=== PATIENT | female | born 1945 | race Caucasian/White ===

== ENCOUNTER 2017-11-17 06:38 | Emergency (ER) | payer MEDICARE, MEDICAID ==
[2017-11-17] MEDS ORDERED: Thiamine IV* 100 MG, Folic Acid IV* 1 MG, Multiple Vitamin IV ADULT* 10 ML in NS 0.9% 1... IV ONE (07:37)
--- NOTE | 2017-11-17 07:38 | ED ---
Upper Extremity Pain - HPI Summary HPI Summary: This patient is a 72 year old F presenting to [facility] with a chief complaint of right elbow pain secondary to mechanical fall since 0100. Pt is unaware of why she fell, but states she knows that she did not trip. Pt notes using walker to ambulate. She endorses right elbow pain, abrasion. Pt endorses having used the walker last night when she fell. She notes her legs werent functioning properly , they wouldnt go. Denies the fault is weakness so much as dysfunction. Pt denies CUEVAS. PMHx prosthetic eye, PMHx CVA. Pt endorses mild pain from leg movement, and more than baseline decreased range of motion in all extremities. Pts recent CT scan revealed edema in the left lateral horn and ventricle cavity. - History of Current Complaint Chief Complaint: EDExtremityUpper Stated Complaint: FALL Time Seen by Provider: 11/17/17 07:17 Hx Obtained From: Patient Mechanism Of Injury: Fall From A Standing Position Onset/Duration: Started Hours Ago, Traumatic Severity Initially: Mild Severity Currently: Mild Pain Location: Elbow Aggravating Factor(s): Nothing Alleviating Factor(s): Nothing Associated Signs & Symptoms: Positive: Other - right elbow abrasion, worse than baseline decreased ROM in all extremities. Negative: Fever, Weakness - Allergies/Home Medications Allergies/Adverse Reactions: Allergies Allergy/AdvReac Type Severity Reaction Status Date / Time aspirin Allergy Unknown Verified 11/17/17 06:43 Reaction Details Home Medications: Home Medications Ropinirole HCl [Requip] 0.25 mg PO BEDTIME 11/17/17 [History Confirmed 11/17/17] PMH/Surg Hx/FS Hx/Imm Hx Endocrine/Hematology History: Reports: Hx Thyroid Disease Denies: Hx Diabetes, Hx Systemic Lupus Erythematosus Cardiovascular History: Reports: Hx Hypertension, Other Cardiovascular Problems/ Disorders - HIGH BLOOD PRESSURE Denies: Hx Congestive Heart Failure, Hx Pacemaker/ICD Respiratory History: Reports: Hx Chronic Obstructive Pulmonary Disease (COPD) Comment Only: Other Respiratory Problems/Disorders - COPD GI History: Denies: Other GI Disorders History: Denies: Hx Renal Disease Sensory History: Reports: Hx Contacts or Glasses, Hx Eye Prosthesis - left Opthamlomology History: Reports: Hx Contacts or Glasses, Hx Eye Prosthesis - left Neurological History: Reports: Other Neuro Impairments/Disorders - 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 Denies: Hx Seizures Psychiatric History: Denies: Hx Autism, Hx Schizophrenia - Surgical History Surgery Procedure, Year, and Place: FX'ED MANDIBLE REPAIR/LT EYE REMOVAL RUPTURED ARTERY Infectious Disease History: No Infectious Disease History: Denies: Traveled Outside the [place] in Last 30 Days - Family History Known Family History: Negative: Blood Disorder - Social History Occupation: Retired Lives: Alone Alcohol Use: None Alcohol Amount: a beer/daily Substance Use Type: Reports: None Smoking Status (MU): Light Every Day Tobacco Smoker Type: Cigarettes Have You Smoked in the Last Year: Yes Review of Systems Negative: Fever Positive: no symptoms reported Positive: Arthralgia - right elbow, Decreased ROM - all limbs, especially legs, especially right Positive: Other - right elbow abrasion Negative: Headache All Other Systems Reviewed And Are Negative: Yes Physical Exam - Summary Physical Exam Summary: Appearance: The patient is well-nourished in no acute distress and in no acute pain. Patient slurs speech and is difficult to understand. Skin: The skin is warm and dry and skin color reflects adequate perfusion. Abrasion to right elbow. HEENT: The head is normocephalic and atraumatic. Left ocular prosthesis. Her right pupil is equal and reactive. The conjunctivae are clear and without drainage. Nares are patent and without drainage. Mouth reveals moist mucous membranes and the throat is without erythema and exudate. The external ears are intact. The ear canals are patent and without drainage. The tympanic membranes are intact. Neck: The neck is supple with full range of motion and non-tender. There are no carotid bruits. There is no neck vein distension. Respiratory: Chest is non-tender. Lungs are clear to auscultation and breath sounds are symmetrical and equal. Cardiovascular: Heart is regular rate and rhythm. There is no murmur or rub auscultated. There is no peripheral edema and pulses are symmetrical and equal. Abdomen: The abdomen is soft and non-tender. There are normal bowel sounds heard in all four quadrants and there is no organomegaly palpated. Musculoskeletal: There is no back tenderness noted. There is good capillary refill. There is no peripheral edema or calf tenderness elicited. Significant dysmetria in both upper and lower extremities, right much worse than left. Neurological: Patient is alert and oriented to person, place and time. The patient has significant dysmetria in both upper and lower extremities, right much worse than left. Cranial nerves are grossly intact. Deep tendon reflexes are symmetrical and equal in all four extremities. Pt slurs speech and is difficult to understand. Psychiatric: The patient has an appropriate affect and does not exhibit any anxiety or depression. Significant dysmetria in both upper and lower extremities, right much worse than left. Slurs speech difficult to understand, left ocular prosthesis, abrasion on right elbow. Triage Information Reviewed: Yes Vital Signs On Initial Exam: Initial Vitals Temp Pulse Resp BP Pulse Ox 99.2 F 84 16 171/100 96 11/17/17 06:40 11/17/17 06:40 11/17/17 06:40 11/17/17 06:40 11/17/17 06:40 Vital Signs Reviewed: Yes Diagnostics - Vital Signs Vital Signs Temp Pulse Resp BP Pulse Ox 11/17/17 06:45 84 93 11/17/17 06:43 85 171/100 93 11/17/17 06:42 82 184/105 92 11/17/17 06:40 99.2 F 84 16 171/100 96 - Laboratory Result Diagrams: 11/17/17 08:34 11/17/17 08:34 Lab Statement: Any lab studies that have been ordered have been reviewed, and results considered in the medical decision making process. - CT Brain CT Interpretation: Positive (See Comments) CT Interpretation Completed By: Radiologist - 1. CHRONIC SMALL VESSEL ISCHEMIC CHANGE WITH MULTIPLE CHRONIC INFARCTS, WITH PROGRESSION COMPARED TO AUGUST 05, 2012. 2. NO ACUTE INTRACRANIAL PATHOLOGY. Dr. Sanon has reviewed this report. - EKG 0743 Cardiac Rate: NL - 81 EKG Rhythm: Sinus Rhythm ST Segment: Normal Ectopy: None Re-Evaluation - Re-Evaluation First Eval Re-Evaluation Time: 12:33 Change: Improved Comment: Pt better after fluids. Course/Dx - Course Course Of Treatment: Ms. Larson presented to the emergency department after having fallen when getting out of bed to go to the bathroom. She normally walks with a walker and she was walking with her walker when she fell. She thinks she felt as her legs weren't working right. She went back to bed and when she got out of bed this morning she still felt that her legs were working right and she came into the ED. She got a workup here including CT scan and labs as well as a banana bag of fluid. She has a history of chronic alcohol use. On initial exam she is quite dysmetric. After her evaluation she felt much improved. She walked normally with her walker as attested to by 2 friends here with her. I'm not sure of the etiology but this seems unlikely that this is a posterior stroke that has resolved with fluids. I recommended close follow -up and discharge. - Diagnoses Provider Diagnoses: Dehydration Discharge - Sign-Out/Discharge Documenting (check all that apply): Patient Departure - discharge - Discharge Plan Condition: Stable Disposition: HOME Patient Education Materials: Dehydration (ED) Referrals: Cuca Rosas MD [Primary Care Provider] - 3 Days Additional Instructions: Return to the emergency department for any new or worsening symptoms. - Billing Disposition and Condition Condition: STABLE Disposition: Home - Attestation Statements Document Initiated by Lona: Yes Documenting Scribe: Oneil Tatum Provider For Whom Lona is Documenting (Include Credential): Dr. Sravan Sanon MD Scribe Attestation: I, Oneil Tatum scribed for Dr. Sravan Sanon MD on 11/17/17 at 1810. Scribe Documentation Reviewed: Yes Provider Attestation: The documentation as recorded by the Oneil segovia accurately reflects the service I personally performed and the decisions made by me, Dr. Sravan Saonn MD
[2017-11-17 08:40] LABS: ABS Basophils 0.1 10^3/ul (0-0.2); ABS Eosinophils 0 10^3/ul (0-0.6); ABS Lymphocytes 1.5 10^3/ul (1.0-4.8); ABS Monocytes 0.3 10^3/ul (0-0.8); ABS Neutrophils 4.7 10^3/ul (1.5-7.7); ABS Nucleated RBC 0 10^3/ul; Eosinophil % 0.7 % (0-6); Hematocrit 38 % (35-47); Hemoglobin 13.1 g/dl (12.0-16.0); Lymphocyte % 23.1 % (25-47); Mean Corpuscular HGB Conc 35 g/dl (31-36); Mean Corpuscular Hemoglobin 33 pg (27-31); Mean Corpuscular Volume 94 fL (80-97); Nucleated Red Blood Cells % 0; Platelet Count 241 10^3/ul (150-450); Red Blood Count 4.04 10^6/ul (4.00-5.40); Red Cell Distribution Width 13 % (10.5-15); White Blood Count 6.6 10^3/ul (3.5-10.8)
[2017-11-17 08:45] LABS: INR 0.98 (0.77-1.02)
--- NOTE | 2017-11-17 09:02 | RAD ---
HISTORY: ataxia COMPARISONS: August 05, 2012 TECHNIQUE: Multiple contiguous axial CT scans were obtained of the head without intravenous contrast. FINDINGS: HEMORRHAGE/INFARCT: There is no hemorrhage or acute infarct. MASSES/SHIFT: There is no mass or shift. EXTRA-AXIAL SPACES: There are no extra-axial fluid collections. SULCI AND VENTRICLES: There is diffuse and proportional enlargement of the sulci and ventricles. There is ex vacuo dilatation of the frontal horn of left lateral ventricle. This is stable. CEREBRUM: There is hypoattenuation of the periventricular and subcortical white matter. There is left frontal encephalomalacia. BRAINSTEM: There are no focal parenchymal abnormalities. CEREBELLUM: There is right cerebellar encephalomalacia that has developed from the 2013 examination. VESSELS: The vessels are grossly normal. PARANASAL SINUSES: The paranasal sinuses are clear. ORBITS: The nodular prosthesis is noted on the left. BONES AND SOFT TISSUE: No bone or soft tissue abnormalities are noted. OTHER: None IMPRESSION: 1. CHRONIC SMALL VESSEL ISCHEMIC CHANGE WITH MULTIPLE CHRONIC INFARCTS, WITH PROGRESSION COMPARED TO AUGUST 05, 2012. 2. NO ACUTE INTRACRANIAL PATHOLOGY.
[2017-11-17 09:05] LABS: EGFR Non-African American 111.3 (>60)
[2017-11-17 11:10] LABS: Urine Appearance Clear; Urine Blood 1+ (Negative); Urine Color Straw; Urine Ketones Negative (Negative); Urine Protein Negative (Negative); Urine Red Blood Cell Trace(0-2/hpf) (Absent); Urine Specific Gravity 1.003 (1.010-1.030); Urine Urobilinogen Negative (Negative); Urine White Blood Cell Trace(0-5/hpf) (Absent)
[2017-11-17 12:32] VITALS: BP 121/65
== END 2017-11-17 12:41 | disposition home or self-care (01) ==
LOC: ED 06:38
DX: E86.0 Dehydration (principal); M25.521 Pain in right elbow; F17.210 Nicotine dependence, cigarettes, uncomplicated; Z91.81 History of falling; Z86.73 Personal history of transient ischemic attack (TIA), and cerebral infarction without residual deficits; Z97.0 Presence of artificial eye; Z88.6 Allergy status to analgesic agent
CPT/HCPCS: 36415; 70450; 80053; 80307; 81003; 81015; 83605; 83735; 84443; 84484; 85025; 85610; 87086; 96360; 96361; 96365; 96366; 99284; J3411

== ENCOUNTER 2017-12-23 17:26 | Emergency (ER) | payer MEDICARE, MEDICAID ==
--- OUTSIDE RECORDS SUMMARY | 2017-12-23 18:38 | XMS REPORT ---
:1945 External Reference #:[id number] Author Organization [employer] Address [address] [place] [address] [place] [address] Phone [phone] Care Team Providers Name Role Phone Cuca Rosas MD Primary Care Physician Unavailable Payers Type Date Identification Numbers Payment Provider Subscriber Health Maintenance Policy Number: Medicare Blue Ppo Rere Dias [facility] (O) [id number] PayID: [id number] [address] [address] [place] [address] Medigap Part B Policy Number: [id number] Medicare Rere [place] PayID: [id number] [address] [place] [address] Medigap Part B Expires: 12/20/2017 Policy Number: [facility] Rere Dias [id number] Care (Oon) PayID: [id number] [address] [place] [address] Commercial Policy Number: [id number] [place] Rere [place] PayID: [id number] [address] [place] [address] Problems Date Description Provider Status Onset: 12/20/2014 Alcoholic polyneuropathy Nadira Bowres MD Active Onset: 12/20/2014 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 Nadira Bowers MD Active of cerebrovascular disease Social History Type Date Description Comments ETOH Use Drinks 6 Alcoholic Beverages Per Day Smoking Patient is a current smoker, smokes every day 1/2 pack per day Allergies, Adverse Reactions, Alerts Date Description Reaction Status Severity Comments 12/20/2014 Aspirin active Medications Medication Date Status Form Strength Qnty SIG Indications Ordering Provider Ventolin HFA 00/00/ Active Aerosol 108(90Bas 2 puffs by Unknown 0000 e) mouth four mcg/Act times a day as needed Proair HFA 00/00/ Active Aerosol 108(90Bas 2 puffs by Unknown 0000 e) mouth every mcg/Act 4 hours as needed Diltiazem CD 00/ Active Caps ER 120mg 1 by mouth Unknown 0000 24HR every day Flovent HFA 00/ Active Aerosol 110mcg/Ac 2 puffs Unknown 0000 t twice daily Levothyroxine 0000/ Active Tablets 50mcg 1 by mouth Unknown Sodium 0000 every day Lisinopril 0000/ Active Tablets 5mg 1 by mouth Unknown 0000 every day Nicotine 00/00/ Active Patches 14mg/24HR 1 apply Unknown 0000 24HR patch topically every 24 hours. Omeprazole // Active Capsules 20mg 1 by mouth Unknown 0000 DR every day Ropinirole HCL 00/ Active Tablets 0.25mg 1 tablets Unknown 0000 by mouth every night at bed Spiriva / Active Capsules 18mcg 1 Unknown Handihaler 0000 inhalation by mouth every morning Aspirin 00/ Hx Tablets 81mg 1 by mouth Unknown 0000 - every day 2014 Ergocalciferol 00/ Hx Capsules [id number] 1 cap by Unknown 0000 - mouth every 2018 Vital Signs Date Vital Result Comment 12/21/2017 Height 64 inches 5'4" Weight 130.75 lb Heart Rate 76 /min BP Systolic Sitting 100 mmHg BP Diastolic Sitting 70 mmHg Respiratory Rate 20 /min Body Temperature 97.1 F BMI (Body Mass Index) 22.4 kg/m2 12/20/2014 Height 64 inches 5'4" Weight 127.00 lb Heart Rate 76 /min BP Systolic Sitting 118 mmHg BP Diastolic Sitting 74 mmHg Respiratory Rate 16 /min BMI (Body Mass Index) 21.8 kg/m2 Results Description No Information Procedures Description No Information Encounters Type Date Location Provider CPT E/M Dx Office Visit 12/20/2014 11:00a [place] [address] I69.351 [facility] G62.1 I10 Plan of Care 12/21/2017 - Howard Lubin M.D.G93.89 Other specified disorders of brainFollow up:With PCP
[2017-12-23 18:53] LABS: ABS Basophils 0.1 10^3/ul (0-0.2); ABS Eosinophils 0.1 10^3/ul (0-0.6); ABS Lymphocytes 1.9 10^3/ul (1.0-4.8); ABS Monocytes 0.4 10^3/ul (0-0.8); ABS Neutrophils 4.8 10^3/ul (1.5-7.7); ABS Nucleated RBC 0 10^3/ul; Eosinophil % 1.1 % (0-6); Hematocrit 35 % (35-47); Lymphocyte % 26.4 % (25-47); Mean Corpuscular HGB Conc 35 g/dl (31-36); Mean Corpuscular Hemoglobin 32 pg (27-31); Mean Corpuscular Volume 92 fL (80-97); Mean Platelet Volume 7.5 um3 (7.4-10.4); Nucleated Red Blood Cells % 0; Platelet Count 202 10^3/ul (150-450); Red Blood Count 3.74 10^6/ul (4.00-5.40); Red Cell Distribution Width 13 % (10.5-15); White Blood Count 7.2 10^3/ul (3.5-10.8)
--- NOTE | 2017-12-23 19:10 | RAD ---
EXAM: US Duplex Bilateral Lower Extremity Veins CLINICAL HISTORY: 72 years old, female; Signs and symptoms; Swelling of limb; Lower extremity, right; Additional info: Pedal edema TECHNIQUE: Real-time duplex ultrasound scan of the bilateral lower extremity veins integrating B-mode two-dimensional vascular structure, Doppler spectral analysis, color flow Doppler imaging and compression. COMPARISON: No relevant prior studies available. FINDINGS: Right deep veins: Possible occlusion of the right femoral artery involving its proximal and mid portions with reconstitution of flow distally. No DVT in the right common femoral, femoral, proximal deep femoral or popliteal veins. The veins demonstrate normal color flow, are normally compressible, with normal phasic flow and/or augmentation response. Right superficial veins: Unremarkable. No thrombus in the visualized right great saphenous vein. Left deep veins: Unremarkable. No DVT in the left common femoral, femoral, proximal deep femoral or popliteal veins. The veins demonstrate normal color flow, are normally compressible, with normal phasic flow and/or augmentation response. Left superficial veins: Unremarkable. No thrombus in the visualized left great saphenous vein. Soft tissues: No acute findings. No popliteal cyst. Other: Possible occlusion of the right femoral artery involving its proximal and mid portions with reconstitution of flow distally. IMPRESSION: 1. No deep venous thrombosis. 2. Possible occlusion of the right femoral artery.
[2017-12-23 19:21] LABS: EGFR Non-African American 106.7 (>60)
--- NOTE | 2017-12-23 20:34 | ED ---
Lower Extremity - HPI Summary HPI Summary: Patient sent by PCP to the ED for DVT rule out. Patient complains of bilateral lower extremity swelling 3 weeks. Swelling is worse at night, improved by morning. Denies trauma, fever, cough, sore throat, CP, SOB, N/V/D, abdominal pain, change in urine, change in BM. Denies history of CHF. Denies history of swelling prior to past 3 weeks. Medical condition is hypothyroid, HTN, GERD, COPD. Positive smoker. Denies history of blood clots. No anti-coag. - History of Current Complaint Chief Complaint: EDExtremityLower Stated Complaint: SWELLING/SORENESS IN LEGS Time Seen by Provider: 12/23/17 17:47 Hx Obtained From: Patient Mechanism Of Injury: Unknown Onset of Pain: Days Onset/Duration: Weeks Severity Initially: Mild Severity Currently: Mild Pain Intensity: 0 Pain Scale Used: 0-10 Numeric Timing: Intermittent Location: Is Discrete @ Character Of Pain: Throbbing Associated Signs And Symptoms: Positive: Swelling Aggravating Factor(s): Ambulation, Weight Bearing Alleviating Factor(s): Rest Able to Bear Weight: Yes - Allergies/Home Medications Allergies/Adverse Reactions: Allergies Allergy/AdvReac Type Severity Reaction Status Date / Time aspirin Allergy Unknown Verified 12/23/17 17:59 Reaction Details PMH/Surg Hx/FS Hx/Imm Hx Endocrine/Hematology History: Reports: Hx Thyroid Disease Denies: Hx Diabetes, Hx Systemic Lupus Erythematosus Cardiovascular History: Reports: Hx Hypertension, Other Cardiovascular Problems/ Disorders - HIGH BLOOD PRESSURE Denies: Hx Congestive Heart Failure, Hx Pacemaker/ICD Respiratory History: Reports: Hx Chronic Obstructive Pulmonary Disease (COPD) Comment Only: Other Respiratory Problems/Disorders - COPD GI History: Denies: Other GI Disorders History: Denies: Hx Renal Disease Sensory History: Reports: Hx Contacts or Glasses, Hx Eye Prosthesis - left Opthamlomology History: Reports: Hx Contacts or Glasses, Hx Eye Prosthesis - left Neurological History: Reports: Other Neuro Impairments/Disorders - 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 Denies: Hx Seizures Psychiatric History: Denies: Hx Autism, Hx Schizophrenia - Surgical History Surgery Procedure, Year, and Place: FX'ED MANDIBLE REPAIR/LT EYE REMOVAL RUPTURED ARTERY - Immunization History Immunizations Up to Date: Yes Infectious Disease History: No Infectious Disease History: Denies: Traveled Outside the [place] in Last 30 Days - Family History Known Family History: Negative: Blood Disorder - Social History Alcohol Use: None Alcohol Amount: a beer/daily Substance Use Type: Reports: None Smoking Status (MU): Light Every Day Tobacco Smoker Type: Cigarettes Have You Smoked in the Last Year: Yes Review of Systems Constitutional: Negative Eyes: Negative ENT: Negative Cardiovascular: Negative Respiratory: Negative Gastrointestinal: Negative Genitourinary: Negative Musculoskeletal: Negative Skin: Other Neurological: Negative Psychological: Normal All Other Systems Reviewed And Are Negative: Yes Physical Exam - Summary Physical Exam Summary: Very mild edema in left lower extremity. 1+ pitting edema right lower extremity. No erythema, ecchymosis, deformity, swelling, extra warmth, wound noted to bilateral lower extremities. Full range of motion at ankle and knee bilaterally. Calves soft nontender bilaterally. Vital Signs On Initial Exam: Initial Vitals Temp Pulse Resp BP Pulse Ox 97.6 F 67 16 122/58 100 12/23/17 17:35 12/23/17 17:35 12/23/17 17:35 12/23/17 17:35 12/23/17 17:35 Diagnostics - Vital Signs Vital Signs Temp Pulse Resp BP Pulse Ox 12/23/17 18:21 72 17 113/65 99 12/23/17 18:00 72 24 100 12/23/17 17:51 72 119/67 100 12/23/17 17:50 71 99 12/23/17 17:35 97.6 F 67 16 122/58 100 - Laboratory Lab Results: Lab Results 12/23/17 12/23/17 Range/Units 18:40 18:40 WBC 7.2 (3.5-10.8) 10^3/ul RBC 3.74 L (4.00-5.40) 10^6/ul Hgb 12.0 (12.0-16.0) g/dl Hct 35 (35-47) % MCV 92 (80-97) fL MCH 32 H (27-31) pg MCHC 35 (31-36) g/dl RDW 13 (10.5-15) % Plt Count 202 (150-450) 10^3/ul MPV 7.5 (7.4-10.4) um3 Neut % (Auto) 66.3 (38-83) % Lymph % (Auto) 26.4 (25-47) % [place] % (Auto) 4.9 (0-7) % Eos % (Auto) 1.1 (0-6) % Baso % (Auto) 1.3 (0-2) % Absolute Neuts (auto) 4.8 (1.5-7.7) 10^3/ul Absolute Lymphs (auto) 1.9 (1.0-4.8) 10^3/ul Absolute Monos (auto) 0.4 (0-0.8) 10^3/ul Absolute Eos (auto) 0.1 (0-0.6) 10^3/ul Absolute Basos (auto) 0.1 (0-0.2) 10^3/ul Absolute Nucleated RBC 0 10^3/ul Nucleated RBC % 0 Sodium 143 (135-145) mmol/L Potassium 3.7 (3.5-5.0) mmol/L Chloride 109 (101-111) mmol/L Carbon Dioxide 29 (22-32) mmol/L Anion Gap 5 (2-11) mmol/L BUN 9 (6-24) mg/dL Creatinine 0.56 (0.51-0.95) mg/dL Est GFR ( Amer) 129.1 (>60) Est GFR (Non-Af Amer) 106.7 (>60) BUN/Creatinine Ratio 16.1 (8-20) Glucose 94 (70-100) mg/dL Calcium 9.3 (8.6-10.3) mg/dL Total Bilirubin 0.30 (0.2-1.0) mg/dL AST 13 (13-39) U/L ALT 10 (7-52) U/L Alkaline Phosphatase 75 (34-104) U/L C-Reactive Protein 5.64 (<8.01) mg/L Total Protein 6.6 (6.4-8.9) g/dL Albumin 3.9 (3.2-5.2) g/dL Globulin 2.7 (2-4) g/dL Albumin/Globulin Ratio 1.4 (1-3) Result Diagrams: 12/23/17 18:40 12/23/17 18:40 Lab Statement: Any lab studies that have been ordered have been reviewed, and results considered in the medical decision making process. - Radiology cxr Xray Interpretation: No Acute Changes Radiology Interpretation Completed By: ED Physician - Ultrasound No standard instances Ultrasound Interpretation: No Acute Changes - Bilateral ultrasound lower extremities negative for DVT. Radiology called states possible occlusion in right proximal femoral artery, but states positive blood flow and right lower extremity arteries distally. Lower Extremity Course/Dx - Course Course Of Treatment: Patient sent by PCP to the ED for DVT rule out. Patient complains of bilateral lower extremity swelling 3 weeks. Swelling is worse at night, improved by morning. Denies trauma, fever, cough, sore throat, CP, SOB, N/V/D, abdominal pain, change in urine, change in BM. Denies history of CHF. Denies history of swelling prior to past 3 weeks. Medical condition is hypothyroid, HTN, GERD, COPD. Positive smoker. Denies history of blood clots. No anti-coag. Physical exam:Very mild edema in left lower extremity. 1+ pitting edema right lower extremity. No erythema, ecchymosis, deformity, swelling, extra warmth, wound noted to bilateral lower extremities. Full range of motion at ankle and knee bilaterally. Calves soft nontender bilaterally. Vital signs within normal limits. Labs unremarkable. Chest x-ray negative. BMP negative. Patient denies SOB or chest pain. Ultrasound of bilateral lower extremities negative. Radiologist called to say possible proximal right femoral occlusion, though states positive blood flow and arteries distally on right lower extremity. Patient has full motor control of both feet, both feel warm, pulses confirmed in bilateral feet with Doppler. Patient states she is very active, denies worsening of bilateral left lower extremity discomfort with activity. Diagnosis venous insufficiency. Follow-up with primary care. Advised patient to follow up with vascular surgery to rule out right proximal femoral occlusion. - Diagnoses Provider Diagnoses: Edema of both lower legs due to peripheral venous insufficiency Discharge - Sign-Out/Discharge Documenting (check all that apply): Patient Departure - Discharge Plan Condition: Stable Disposition: HOME Patient Education Materials: Leg Edema (ED), Venous Insufficiency (DC) Referrals: Romel Quiñones MD [Medical Doctor] - Cuca Rosas MD [Primary Care Provider] - Additional Instructions: Follow-up with primary care for bilateral lower leg edema and renal insufficiency. Radiologist states incidental finding of possible occlusion of right proximal femoral artery on venous ultrasound while checking for DVTs. However radiology also confirmed positive blood flow in arteries further down leg. Pulses were confirmed in both feet by Doppler. Follow-up with vascular surgery Dr Ruiz. - Billing Disposition and Condition Condition: STABLE Disposition: Home
[2017-12-23 21:18] VITALS: BP 109/62
--- NOTE | 2017-12-24 06:58 | RAD ---
INDICATION: Peripheral edema. COMPARISON: Comparison is made with prior study from December 10, 2008. TECHNIQUE: A portable view of the chest was obtained. FINDINGS: Cardiac and mediastinal contours appear to be within normal limits. The lungs are underinflated. There is minimal atelectasis at the left lung base. The lungs are otherwise clear. No pleural effusion is seen. IMPRESSION: NO EVIDENCE FOR ACUTE DISEASE. R0
== END 2017-12-23 21:17 | disposition home or self-care (01) ==
LOC: ED 17:26
DX: I73.9 Peripheral vascular disease, unspecified (principal); I10 Essential (primary) hypertension; E03.9 Hypothyroidism, unspecified; J44.9 Chronic obstructive pulmonary disease, unspecified; K21.9 Gastro-esophageal reflux disease without esophagitis; F17.210 Nicotine dependence, cigarettes, uncomplicated; Z88.6 Allergy status to analgesic agent
CPT/HCPCS: 36415; 71045; 80053; 83880; 85025; 86140; 93970; 99282